=== PATIENT | female | born 1985 | race American Indian/Alaskan Native ===

== ENCOUNTER 2019-02-08 11:51 | Emergency (ER) | payer SELFPAY ==
--- NOTE | 2019-02-08 11:57 | Emergency Department Report ---
Blank Doc - Documentation Documentation: This is a 34-year-old female that presents with chest pain in midsternim without radiation. Stated has some mild SOB. Denies any other symptoms or complaints. This initial assessment/diagnostic orders/clinical plan/treatment(s) is/are subject to change based on patient's health status, clinical progression and re- assessment by fellow clinical providers in the ED. Further treatment and workup at subsequent clinical providers discretion. Patient/guardians urged not to el ope from the ED as their condition may be serious if not clinically assessed and managed. Initial orders include: 1- Patient sent to [facility] for further evaluation and treatment 2- labs 3- EKG 4- CXR
[2019-02-08 12:40] LABS: Basophils # (Auto) 0.1 K/mm3 (0.0-0.1); Basophils % (Auto) 1.2 % (0.0-1.8); Eosinophils # (Auto) 0.1 K/mm3 (0.0-0.4); Eosinophils % (Auto) 1.8 % (0.0-4.3); Hematocrit 37.7 % (30.3-42.9); Hemoglobin 12.2 gm/dl (10.1-14.3); Lymphocytes # (Auto) 1.9 K/mm3 (1.2-5.4); Lymphocytes % (Auto) 33.1 % (13.4-35.0); Mean Corpuscular HGB Conc 32 % (30-34); Mean Corpuscular Volume 81 fl (79-97); Monocytes # (Auto) 0.4 K/mm3 (0.0-0.8); Monocytes % (Auto) 7.1 % (0.0-7.3); Platelet Count 258 K/mm3 (140-440); Red Blood Count 4.66 M/mm3 (3.65-5.03); Red Cell Distribution Width 15.5 % (13.2-15.2)
[2019-02-08 12:53] LABS: BUN/Creatinine Ratio 10; Blood Urea Nitrogen 7 mg/dL (7-17); Calcium 8.6 mg/dL (8.4-10.2); Hemolysis Index 3
[2019-02-08 13:02] LABS: INR 0.94 (0.87-1.13)
[2019-02-08 13:03] LABS: Partial Thromboplastin Time 27.5 Sec. (24.2-36.6)
[2019-02-08 15:20] VITALS: BP 164/92
--- NOTE | 2019-02-08 15:39 | Emergency Department Report ---
ED Chest Pain HPI - General Chief Complaint: Chest Pain Stated Complaint: CHEST PAIN/BOIL UNDERARMS PAIN Time Seen by Provider: 02/08/19 11:55 Source: patient Mode of arrival: Ambulatory Limitations: No Limitations - History of Present Illness Initial Comments: This is a 34-year-old female who presents today complaining of midsternal, aching, chest pain just started about 3 days ago. Patient states that this pain is localized to the mid sternal area. Nonradiating. Patient denies any injury, trauma or falls. Patient also complained that she has boils under both armpits causing her some pain as well. Patient denies recent URI. She denies fever s/chills/nausea vomiting and runny nose stuffy nose headache MD Complaint: chest pain Severity scale (0 -10): 6 - Related Data Previous Rx's Medication Instructions Recorded Last Taken Type traMADol [Ultram] 50 mg PO Q6HR PRN #12 tablet 09/22/18 Unknown Rx Ibuprofen [Motrin] 800 mg PO Q8HR #30 tablet 02/08/19 Unknown Rx Sulfamethoxazole/Trimethoprim 1 each PO BID #20 tablet 02/08/19 Unknown Rx [Bactrim DS TAB] Allergies Allergy/AdvReac Type Severity Reaction Status Date / Time No Known Allergies Allergy Unverified 09/22/18 00:43 Heart Score - HEART Score History: Slightly suspicious EKG: Normal Age: < 45 Risk factors: No known risk factors Troponin: < normal limit HEART Score: 0 - Critical Actions Critical Actions: 0-3 pts:0.9-1.7%risk of adverse cardiac event.Candidate for discharge ED Review of Systems ROS: Stated complaint: CHEST PAIN/BOIL UNDERARMS PAIN Other details as noted in HPI Comment: All other systems reviewed and negative ED Past Medical Hx - Past Medical History Previous Medical History?: No - Surgical History Past Surgical History?: No - Social History Smoking Status: Never Smoker Substance Use Type: Alcohol - Medications Home Medications: Home Medications Medication Instructions Recorded Confirmed Last Taken Type traMADol [Ultram] 50 mg PO Q6HR PRN #12 tablet 09/22/18 Unknown Rx Ibuprofen [Motrin] 800 mg PO Q8HR #30 tablet 02/08/19 Unknown Rx Sulfamethoxazole/Trimethoprim 1 each PO BID #20 tablet 02/08/19 Unknown Rx [Bactrim DS TAB] ED Physical Exam - General Limitations: No Limitations General appearance: alert, in no apparent distress - Head Head exam: Present: atraumatic, normocephalic - Eye Eye exam: Present: normal appearance - ENT ENT exam: Present: mucous membranes moist - Neck Neck exam: Present: normal inspection - Respiratory Respiratory exam: Present: normal lung sounds bilaterally. Absent: respiratory distress, wheezes, rales, chest wall tenderness, accessory muscle use - Cardiovascular Cardiovascular Exam: Present: regular rate, normal rhythm, normal heart sounds. Absent: systolic murmur, diastolic murmur, rubs, gallop - GI/Abdominal GI/Abdominal exam: Present: soft, normal bowel sounds. Absent: distended, tenderness, guarding - Extremities Exam Extremities exam: Present: normal inspection - Back Exam Back exam: Present: normal inspection - Neurological Exam Neurological exam: Present: alert, oriented X3 - Psychiatric Psychiatric exam: Present: normal affect, normal mood - Skin Skin exam: Present: warm, dry, intact, normal color. Absent: rash ED Course Vital Signs 02/08/19 02/08/19 11:59 15:17 Temperature 98.2 F 98.3 F Pulse Rate 86 73 Respiratory 18 16 Rate Blood Pressure 177/102 Blood Pressure 164/92 [Left] O2 Sat by Pulse 100 100 Oximetry BETSEY score - Betsey Score Age > 65: (0) No Aspirin use within the Past 7 Days: (0) No 3 or more CAD Risk Factors: (0) No 2 or more Angina events in past 24 hrs: (0) No Known CAD with more than 50% Stenosis: (0) No Elevated Cardiac Markers: (0) No ST Deviation Greater than 0.5mm: (0) No BETSEY Score: 0 ED Medical Decision Making - Lab Data Result diagrams: 02/08/19 12:20 02/08/19 12:20 Laboratory Last Values WBC 5.8 K/mm3 (4.5-11.0) 02/08/19 12:20 RBC 4.66 M/mm3 (3.65-5.03) 02/08/19 12:20 Hgb 12.2 gm/dl (10.1-14.3) 02/08/19 12:20 Hct 37.7 % (30.3-42.9) 02/08/19 12:20 MCV 81 fl (79-97) 02/08/19 12:20 MCH 26 pg (28-32) L 02/08/19 12:20 MCHC 32 % (30-34) 02/08/19 12:20 RDW 15.5 % (13.2-15.2) H 02/08/19 12:20 Plt Count 258 K/mm3 (140-440) 02/08/19 12:20 Lymph % (Auto) 33.1 % (13.4-35.0) 02/08/19 12:20 [place] % (Auto) 7.1 % (0.0-7.3) 02/08/19 12:20 Eos % (Auto) 1.8 % (0.0-4.3) 02/08/19 12:20 Baso % (Auto) 1.2 % (0.0-1.8) 02/08/19 12:20 Lymph # 1.9 K/mm3 (1.2-5.4) 02/08/19 12:20 [place] # 0.4 K/mm3 (0.0-0.8) 02/08/19 12:20 Eos # 0.1 K/mm3 (0.0-0.4) 02/08/19 12:20 Baso # 0.1 K/mm3 (0.0-0.1) 02/08/19 12:20 Seg Neutrophils % 56.8 % (40.0-70.0) 02/08/19 12:20 Seg Neutrophils # 3.3 K/mm3 (1.8-7.7) 02/08/19 12:20 PT 13.1 Sec. (12.2-14.9) 02/08/19 12:20 INR 0.94 (0.87-1.13) 02/08/19 12:20 APTT 27.5 Sec. (24.2-36.6) 02/08/19 12:20 Sodium 139 mmol/L (137-145) 02/08/19 12:20 Potassium 3.9 mmol/L (3.6-5.0) 02/08/19 12:20 Chloride 104.6 mmol/L (98-107) 02/08/19 12:20 Carbon Dioxide 24 mmol/L (22-30) 02/08/19 12:20 Anion Gap 14 mmol/L 02/08/19 12:20 BUN 7 mg/dL (7-17) 02/08/19 12:20 Creatinine 0.7 mg/dL (0.7-1.2) 02/08/19 12:20 Estimated GFR > 60 ml/min 02/08/19 12:20 BUN/Creatinine Ratio 10 % 02/08/19 12:20 Glucose 91 mg/dL (65-100) 02/08/19 12:20 Calcium 8.6 mg/dL (8.4-10.2) 02/08/19 12:20 Troponin T < 0.010 ng/mL (0.00-0.029) 02/08/19 15:07 HCG, Qual Negative (Negative) 02/08/19 12:20 - Radiology Data Radiology results: report reviewed, image reviewed No acute cardiopulmonary process - Medical Decision Making 33-year-old female presents with atypical chest pain with bilateral axillary cellulitis All labs within normal limits, chest x-ray negative troponin is negative. Discussed findings with the patient. Discussed the patient to follow up with primary care physician Critical care attestation.: If time is entered above; I have spent that time in minutes in the direct care of this critically ill patient, excluding procedure time. ED Disposition Clinical Impression: Atypical chest pain, Costochondritis, Axillary pain Disposition: - TO HOME OR SELFCARE Is pt being admited?: No Does the pt Need Aspirin: No Condition: Stable Instructions: Chest Pain (ED), Costochondritis (ED) Additional Instructions: Make sure to follow up with the primary care physician as discussed. Take all your medications as you've been prescribed. If you have any worsening symptoms or develop new symptoms please return to ED immediately. Prescriptions: Sulfamethoxazole/Trimethoprim [Bactrim DS TAB] 1 each PO BID #20 tablet Ibuprofen [Motrin] 800 mg PO Q8HR #30 tablet Referrals: [facility] [Other] - 3-5 Days Forms: Work/School Release Form(ED) Time of Disposition: 16:34
--- NOTE | 2019-02-08 15:45 | XRay Report ---
PROCEDURE: XR CHEST ROUTINE 2V TECHNIQUE: Frontal and lateral views of the chest HISTORY: Chest Pain upt ordered COMPARISONS: None. FINDINGS: The cardiomediastinal silhouette is normal in appearance. There are calcified granulomas in the right lung base. The lungs are otherwise clear. No focal consol idation. No pleural effusion or pneumothorax. No acute bony or soft tissue abnormality. IMPRESSION: No acute cardiopulmonary disease. This document is electronically signed by Shanda Miles MD., February 08 2019 03:43:16 PM ET
== END 2019-02-08 16:58 | disposition home or self-care (01) ==
LOC: ED 11:51
DX: M94.0 Chondrocostal junction syndrome [Tietze] (principal); R07.89 Other chest pain
CPT/HCPCS: 36415; 71046; 80048; 84484; 84703; 85025; 85610; 85730; 93005; 93010

== ENCOUNTER 2020-01-01 02:33 | Emergency (ER) | payer SELFPAY ==
[2020-01-01] MEDS ORDERED: SULFAMETHOXAZOLE/TRIMETHOPRIM 800/160MG DS TAB PO ONE (07:47)
--- NOTE | 2020-01-01 08:01 | Emergency Department Report ---
ED General Adult HPI - General Chief complaint: Dizziness Stated complaint: DIZZY,HIGH BP, ARM PAIN Time Seen by Provider: 01/01/20 07:19 Source: patient Mode of arrival: Ambulatory Limitations: No Limitations - History of Present Illness Initial comments: This is a 34-year-old female with a history of hidradenitis supravita of the axillary who presents to ED complaining of pus drainage from her bilateral armpit for the past couple of days. Patient also states that for the past month or so she has noticed that her blood pressure is been elevated. Patient denies any history of high blood pressure but admits to family history of high blood pressure. Patient states she has not had a check. Patient denies fevers/chills/nausea vomiting/chest pain/shortness of breath/headache blurry vision or any other symptoms - Related Data Previous Rx's Medication Instructions Recorded Last Taken Type traMADoL [Ultram] 50 mg PO Q6HR PRN #12 tablet 09/22/18 Unknown Rx Ibuprofen [Motrin 800 MG tab] 800 mg PO Q8HR #30 tablet 01/01/20 Unknown Rx Sulfamethoxazole/Trimethoprim 1 each PO BID #20 tablet 01/01/20 Unknown Rx [Bactrim DS TAB] amLODIPine 10 mg PO DAILY #30 tab 01/01/20 Unknown Rx Allergies Allergy/AdvReac Type Severity Reaction Status Date / Time No Known Allergies Allergy Verified 01/01/20 02:41 ED Review of Systems ROS: Stated complaint: DIZZY,HIGH BP, ARM PAIN Other details as noted in HPI Comment: All other systems reviewed and negative ED Past Medical Hx - Past Medical History Previous Medical History?: No - Surgical History Past Surgical History?: No - Social History Smoking Status: Never Smoker Substance Use Type: Marijuana - Medications Home Medications: Home Medications Medication Instructions Recorded Confirmed Last Taken Type traMADoL [Ultram] 50 mg PO Q6HR PRN #12 tablet 09/22/18 Unknown Rx Ibuprofen [Motrin 800 MG tab] 800 mg PO Q8HR #30 tablet 01/01/20 Unknown Rx Sulfamethoxazole/Trimethoprim 1 each PO BID #20 tablet 01/01/20 Unknown Rx [Bactrim DS TAB] amLODIPine 10 mg PO DAILY #30 tab 01/01/20 Unknown Rx ED Physical Exam - General Limitations: No Limitations General appearance: alert, in no apparent distress - Head Head exam: Present: atraumatic, normocephalic - Eye Eye exam: Present: normal appearance, PERRL Pupils: Present: normal accommodation - ENT ENT exam: Present: mucous membranes moist, TM's normal bilaterally, normal external ear exam - Neck Neck exam: Present: normal inspection, full ROM. Absent: tenderness - Respiratory Respiratory exam: Present: normal lung sounds bilaterally. Absent: respiratory distress - Cardiovascular Cardiovascular Exam: Present: regular rate, normal rhythm. Absent: systolic murmur, diastolic murmur, rubs, gallop - GI/Abdominal GI/Abdominal exam: Present: soft, normal bowel sounds - Extremities Exam Extremities exam: Present: normal inspection, full ROM, other (Ropelike folds in bilateral axillary, no erythema, no swelling. Minimal puslike discharge noted). Absent: joint swelling - Back Exam Back exam: Present: normal inspection - Neurological Exam Neurological exam: Present: alert, oriented X3 - Psychiatric Psychiatric exam: Present: normal affect, normal mood - Skin Skin exam: Present: warm, dry, intact, normal color. Absent: rash ED Course Vital Signs 01/01/20 02:48 Temperature 97.7 F Pulse Rate 83 Respiratory 15 Rate Blood Pressure 171/99 O2 Sat by Pulse 100 Oximetry ED Medical Decision Making - Medical Decision Making This 34-year-old female presents with axillary hidradenitis supra ramirez Patient is also presenting with elevated blood pressure. I discussed with patient need to follow-up with her primary care physician for blood pressure control. We will start patient on low-dose amlodipine until follow-up. Patient states she understands and will follow-up with the primary care physician. Vital signs normal she is in no acute distress. Critical care attestation.: If time is entered above; I have spent that time in minutes in the direct care of this critically ill patient, excluding procedure time. ED Disposition Clinical Impression: Axillary hidradenitis suppurativa, Uncontrolled hypertension Disposition: DC- TO HOME OR SELFCARE Is pt being admited?: No Does the pt Need Aspirin: No Condition: Stable Instructions: Hypertension (ED) Additional Instructions: Make sure to follow up with the primary care physician as discussed. Take all your medications as you've been prescribed. If you have any worsening symptoms or develop new symptoms please return to ED immediately. Prescriptions: amLODIPine 10 mg PO DAILY #30 tab Sulfamethoxazole/Trimethoprim [Bactrim DS TAB] 1 each PO BID #20 tablet Ibuprofen [Motrin 800 MG tab] 800 mg PO Q8HR #30 tablet Referrals: PRIMARY CARE, [Primary Care Provider] - 3-5 Days [facility] [Provider Group] - 3-5 Days [facility] [place] [Outside] - 3-5 Days [facility] [Outside] - 3-5 Days [facility] [Outside] - 3-5 Days Forms: Accompanied Note, Work/School Release Form(ED) Time of Disposition: 08:02
[2020-01-01 08:08] VITALS: BP 156/94
== END 2020-01-01 08:15 | disposition home or self-care (01) ==
LOC: ED 02:33
DX: L73.2 Hidradenitis suppurativa (principal); I10 Essential (primary) hypertension; F12.10 Cannabis abuse, uncomplicated; Z79.899 Other long term (current) drug therapy
CPT/HCPCS: 93005; 93010; 99282

== ENCOUNTER 2021-09-30 11:42 | Emergency (ER) | payer OTHER ==
[2021-09-30 11:52] VITALS: BP 173/96
--- NOTE | 2021-09-30 12:02 | Emergency Department Report ---
ED General Adult HPI - General Chief complaint: Skin/Abscess/Foreign Body Stated complaint: Hidradenitis suppurativa PUI?: No Time Seen by Provider: 09/30/21 11:52 Source: patient Mode of arrival: Ambulatory Limitations: No Limitations - History of Present Illness Initial comments: 36-year-old female with a history of hypertension but noncompliant with her blood pressure medication and a history of hidradenitis suppurativa presents to the ER today with complaints of flareup of her hidradenitis suppurativa to both axillary area, worse on the left. She states that it flared up about 4 months ago and has been draining yellow pus. She reports some soreness and swelling to the area. She states that the last time she saw her surgeon for it was last year and he only prescribed oral antibiotics. She states that her last time she was on any antibiotics was last year. She states that she is just been try to keep it clean with Dove soap and an antibacterial wash, but it does not seem to be helping. She denies any fever or chills. She states that she is not diabetic and has no other significant past medical history other than hypertension. Complaint: Hidradenitis suppurativa - draining -: month(s) (4) Severity scale (0 -10): 8 - Related Data Previous Rx's Medication Instructions Recorded Last Taken Type traMADoL [Ultram] 50 mg PO Q6HR PRN #12 tablet 09/22/18 Unknown Rx Clindamycin [Clindamycin CAP] 300 mg PO Q6H #40 capsule 09/30/21 Unknown Rx Ibuprofen [Motrin 800 MG tab] 800 mg PO Q8HR #30 tablet 09/30/21 Unknown Rx amLODIPine 10 mg PO DAILY #30 tab 09/30/21 Unknown Rx Allergies Allergy/AdvReac Type Severity Reaction Status Date / Time No Known Allergies Allergy Verified 09/30/21 11:52 ED Review of Systems ROS: Stated complaint: HEADACHES Other details as noted in HPI Comment: All other systems reviewed and negative Constitutional: denies: chills, fever Eyes: denies: eye pain, eye discharge, vision change ENT: denies: ear pain, throat pain Respiratory: denies: cough, shortness of breath, wheezing Cardiovascular: denies: chest pain, palpitations Gastrointestinal: denies: abdominal pain, nausea, vomiting, diarrhea, constipation, hematemesis Genitourinary: denies: urgency, dysuria, frequency, hematuria, discharge, abnormal menses, dyspareunia Musculoskeletal: denies: back pain, joint swelling, arthralgia Skin: rash, lesions Neurological: denies: headache, weakness, numbness, paresthesias, confusion, abnormal gait, vertigo Psychiatric: denies: anxiety, depression Hematological/Lymphatic: denies: easy bleeding, easy bruising ED Past Medical Hx - Social History Smoking Status: Never Smoker Substance Use Type: Marijuana - Medications Home Medications: Home Medications Medication Instructions Recorded Confirmed Last Taken Type traMADoL [Ultram] 50 mg PO Q6HR PRN #12 tablet 09/22/18 Unknown Rx Clindamycin [Clindamycin CAP] 300 mg PO Q6H #40 capsule 09/30/21 Unknown Rx Ibuprofen [Motrin 800 MG tab] 800 mg PO Q8HR #30 tablet 09/30/21 Unknown Rx amLODIPine 10 mg PO DAILY #30 tab 09/30/21 Unknown Rx ED Physical Exam - General Limitations: No Limitations General appearance: alert, in no apparent distress, obese - Head Head exam: Present: atraumatic, normocephalic, normal inspection - Eye Eye exam: Present: normal appearance, PERRL, EOMI Pupils: Present: normal accommodation - Respiratory Respiratory exam: Present: normal lung sounds bilaterally. Absent: respiratory distress - Cardiovascular Cardiovascular Exam: Present: regular rate - Neurological Exam Neurological exam: Present: alert, oriented X3, CN II-XII intact, normal gait - Psychiatric Psychiatric exam: Present: normal affect, normal mood - Skin Skin exam: Present: other (thickened areas of scaring noted to bilateral axilla with few small open flesh colored sores that draining small amt of pus. No cellulitis or significant lymphangitis noted. ) ED Course Vital Signs 09/30/21 11:48 Temperature 98.0 F Pulse Rate 95 H Respiratory 16 Rate Blood Pressure 173/96 [Right] O2 Sat by Pulse 100 Oximetry ED Medical Decision Making - Medical Decision Making Pt with hx of hidradenitis suppurativa both axillar. The areas are already draining and therefore no I&D indicated at this time. There is no cellulitis or significant lymphangitis. Patient feels well. She is not toxic or ill- appearing and not in any significant distress. She is afebrile.. Her blood pressure was noted to be elevated at triage, but she has not been compliant with her amlodipine. Remaining vital signs are stable. She is neurologically intact with a normal gait. patient will be started on oral antibiotics, she will be given referral to general surgery, and she will be given a refill on amlodipine. She was also instructed to follow-up with her PCP for continued monitoring of her blood pressure. Patient expressed understanding of all instructions and agreed with plan. Pt stable at time of discharge. Critical care attestation.: If time is entered above; I have spent that time in minutes in the direct care of this critically ill patient, excluding procedure time. ED Disposition Clinical Impression: Hydradenitis Disposition: HOME / SELF CARE / HOMELESS Is pt being admited?: No Does the pt Need Aspirin: No Condition: Stable Instructions: Hidradenitis Suppurativa Additional Instructions: I recommend that you take the clindamycin as prescribed. Continue to keep the areas clean with antibacterial soap or Ivory soap. You can also use Neosporin from [id number] to apply to the areas. Take the ibuprofen as prescribed to help with any pain. Most importantly I do recommend following up with the surgeon listed on your discharge instructions for further evaluation of the areas. Is also important that you start taking amlodipine for your blood pressure, refill be provided for you at discharge and follow-up with your primary care doctor for continued monitoring of your high blood pressure. Retu rn to the ER if your symptoms changes or worsens in any way. Prescriptions: amLODIPine 10 mg PO DAILY #30 tab Clindamycin [Clindamycin CAP] 300 mg PO Q6H #40 capsule Ibuprofen [Motrin 800 MG tab] 800 mg PO Q8HR #30 tablet Referrals: NAINA JUAREZ DO [Staff Physician] - 3-5 Days (General surgeon ) MEENU GRIFFIN MD [Staff Physician] - 3-5 Days (Primary care physician ) Forms: Work/School Release Form(ED) Time of Disposition: 12:05
== END 2021-09-30 12:32 | disposition home or self-care (01) ==
LOC: ED 11:42
DX: L73.2 Hidradenitis suppurativa (principal); F12.10 Cannabis abuse, uncomplicated
CPT/HCPCS: 99281